=== PATIENT | female | born 1970 | race Caucasian/White ===

== ENCOUNTER 2017-03-09 13:43 | Emergency (ER) | payer MEDICARE, MEDICAID ==
[~2017-03-09] VITALS: Ht 177.8 cm; Wt 98.0 kg
[2017-03-09] MEDS ORDERED: ALBUTEROL/IPRATROPIUM 2.5MG/0.5MG, 3 ML ONE (15:20)
[2017-03-09] MEDS ORDERED: ALBUTEROL/IPRATROPIUM 2.5MG/0.5MG, 3 ML NPPB ONE (15:30)
[2017-03-09 15:47] LABS: HEMATOCRIT 41.9 % (34.6-47.8); HEMOGLOBIN 13.9 g/dL (11.7-16.4); WHITE BLOOD COUNT 7.5 x10^3/uL (3.4-10)
[2017-03-09 15:53] LABS: BLOOD UREA NITROGEN 8 mg/dL (7-18)
[2017-03-09 16:21] VITALS: BP 126/70
== END 2017-03-09 16:24 | disposition home or self-care (01) ==
LOC: ED 16:10
DX: J44.1 Chronic obstructive pulmonary disease with (acute) exacerbation (principal); F17.200 Nicotine dependence, unspecified, uncomplicated
CPT/HCPCS: 36415; 71010; 80048; 82040; 85025; 93005; 94640; 99285; J7512; J7620

== ENCOUNTER 2017-08-08 17:30 | Emergency (ER) | payer MEDICAID, MEDICARE ==
[~2017-08-08] VITALS: Ht 175.3 cm; Wt 98.0 kg
[2017-08-08 17:37] VITALS: BP 122/78
[2017-08-08] MEDS ORDERED: ALBUTEROL/IPRATROPIUM 2.5MG/0.5MG, 3 ML NPPB ONE (18:30)
[2017-08-08] MEDS ORDERED: ALBUTEROL/IPRATROPIUM 2.5MG/0.5MG, 3 ML ONE (18:40)
== END 2017-08-08 19:09 | disposition home or self-care (01) ==
LOC: ED 18:26
DX: J44.0 Chronic obstructive pulmonary disease with (acute) lower respiratory infection (principal); J20.9 Acute bronchitis, unspecified; F17.210 Nicotine dependence, cigarettes, uncomplicated
CPT/HCPCS: 71045; 94640; 99283; J7512; J7620

== ENCOUNTER 2017-10-22 22:07 | Emergency (ER) | payer MEDICARE, MEDICAID ==
[~2017-10-22] VITALS: Ht 172.7 cm; Wt 97.7 kg
[2017-10-22 22:13] VITALS: BP 124/80
== END 2017-10-22 23:34 | disposition home or self-care (01) ==
LOC: ED 23:03
DX: J44.1 Chronic obstructive pulmonary disease with (acute) exacerbation (principal); J20.9 Acute bronchitis, unspecified; J44.0 Chronic obstructive pulmonary disease with (acute) lower respiratory infection; M79.7 Fibromyalgia; F17.200 Nicotine dependence, unspecified, uncomplicated; Z72.89 Other problems related to lifestyle; Z91.14 Patient's other noncompliance with medication regimen; Z60.9 Problem related to social environment, unspecified; Z90.49 Acquired absence of other specified parts of digestive tract
CPT/HCPCS: 71046; 87081; 87880; 99285; 99406

== ENCOUNTER 2018-01-05 13:42 | Emergency (ER) | payer MEDICARE, MEDICAID ==
[~2018-01-05] VITALS: Ht 175.3 cm; Wt 95.6 kg
[2018-01-05 13:43] VITALS: BP 109/58
[2018-01-05] MEDS ORDERED: DEXAMETHASONE 4 MG TABLET ONE (14:09)
[2018-01-05] MEDS ORDERED: DEXAMETHASONE 4 MG TABLET PO ONE (14:30)
== END 2018-01-05 15:00 | disposition home or self-care (01) ==
LOC: ED 14:54
DX: J02.8 Acute pharyngitis due to other specified organisms (principal); B97.89 Other viral agents as the cause of diseases classified elsewhere; J44.9 Chronic obstructive pulmonary disease, unspecified; M79.7 Fibromyalgia; Z90.49 Acquired absence of other specified parts of digestive tract
CPT/HCPCS: 71046; 87081; 87880; 99285

== ENCOUNTER 2018-01-16 07:24 | Emergency (ER) | payer MEDICARE, MEDICAID ==
[~2018-01-16] VITALS: Ht 172.7 cm; Wt 92.1 kg
[2018-01-16 07:26] VITALS: BP 124/77
[2018-01-16] MEDS ORDERED: ALBUTEROL/IPRATROPIUM 2.5MG/0.5MG, 3 ML ONE (07:55)
[2018-01-16] MEDS ORDERED: ALBUTEROL/IPRATROPIUM 2.5MG/0.5MG, 3 ML NPPB ONE (08:00)
== END 2018-01-16 08:50 | disposition home or self-care (01) ==
LOC: ED 08:00
DX: J00 Acute nasopharyngitis [common cold] (principal); J44.9 Chronic obstructive pulmonary disease, unspecified; F32.9 Major depressive disorder, single episode, unspecified
CPT/HCPCS: 71046; 94640; 99284; J7620

== ENCOUNTER 2018-01-23 15:05 | Emergency (ER) | payer MEDICARE, MEDICAID ==
[~2018-01-23] VITALS: Ht 172.7 cm; Wt 90.7 kg
[2018-01-23 15:09] VITALS: BP 124/83
[2018-01-23] MEDS ORDERED: LIDOCAINE 2%, 20ML SQ ONE (16:00)
[2018-01-23] MEDS ORDERED: BUPIVACAINE/PF-EPI 0.25% 1:200K SQ ONE (16:00)
[2018-01-23] MEDS ORDERED: BUPIVACAINE 0.25% ONE (16:02)
[2018-01-23] MEDS ORDERED: LIDOCAINE-MPF 2% ,5ML ONE (16:02)
[2018-01-23] MEDS ORDERED: ZIPR40CA2 PO (16:45)
== END 2018-01-23 16:45 | disposition home or self-care (01) ==
LOC: ED 16:15
DX: K04.7 Periapical abscess without sinus (principal); J44.9 Chronic obstructive pulmonary disease, unspecified; Z79.899 Other long term (current) drug therapy
CPT/HCPCS: 41800; 82962; 99283

== ENCOUNTER 2018-04-12 07:33 | Emergency (ER) | payer MEDICARE, MEDICAID ==
[~2018-04-12] VITALS: Ht 172.7 cm; Wt 83.0 kg
[~2018-04-12 07:33] MED LIST: ZIPR40CA2 PO
[2018-04-12 07:35] VITALS: BP 126/55
== END 2018-04-12 09:24 | disposition home or self-care (01) ==
LOC: ED 09:00
DX: F20.9 Schizophrenia, unspecified (principal); Z76.0 Encounter for issue of repeat prescription; Z79.899 Other long term (current) drug therapy
CPT/HCPCS: 99283